=== PATIENT | female | born 1985 | race Caucasian/White ===

== ENCOUNTER 2023-04-25 13:15 | Emergency (ER) | payer BC, MEDICAID, SELFPAY ==
[2023-04-25 13:27] VITALS: BP 107/73; PULSE 63; RESP 16; TEMP 36.3; O2SAT 100; BMI 16.3
[2023-04-25 13:59] LABS: Basophils # 0.1 10^3/uL (0.0-0.1); Basophils % 0.7 %; Eosinophils % 0.2 %; Hematocrit 38.1 % (36-47); Lymphocytes # 1.3 10^3/uL (0.8-4.8); Lymphocytes % 11.7 %; Mean Corpuscular HGB Conc 31.2 g/dL (30-55); Mean Corpuscular Hemoglobin 26.4 pg (27-33); Mean Corpuscular Volume 84.5 fl (85-98); Mean Platelet Volume 9.6 fL (7.4-10.4); Monocytes # 0.2 10^3/uL (0.2-0.9); Nucleated Red Blood Cells % 0 %; Platelet Count 400 10^3/cmm (157-399); Red Blood Count 4.51 10^6/uL (3.85-5.65); Red Cell Distribution Width 13.4 % (12.1-15.1)
[2023-04-25 14:21] LABS: Alanine Aminotransferase 7 U/L (0-33); Albumin Level 4.3 g/dL (3.5-5.2); Alkaline Phosphatase 79 U/L (35-105); Anion Gap 17.3 (5-19); Aspartate Amino Transferase 9 U/L (0-32); Blood Urea Nitrogen 7 mg/dL (6-20); Calcium 9.4 mg/dL (8.5-10.5); Carbon Dioxide 20 mmol/L (22-29); Chloride 104 mmol/L (98-107); Globulin 2.6 g/dL (1.3-4.6); Glomerular Filtration Rate 95.2 mL/min (90-130); Glucose 129 mg/dL (65-115); HCG, Serum Qual Negative (Negative); Lipase 14 U/L (13-60); Osmolality Calculated 284 mOsm/kg (285-295); Potassium 4.3 mmol/L (3.5-5.1); Sodium 137 mmol/L (136-145); Total Bilirubin 0.4 mg/dL (0.15-1.2); Total Protein 6.9 g/dL (6.6-8.7)
[2023-04-25 14:30] VITALS: PULSE 62; O2SAT 99
--- NOTE | 2023-04-25 14:31 | ED_ITS ---
HPI - Headache General: Chief Complaint: Headache Stated Complaint: NV,headache Time Seen by Provider: 04/25/23 14:30 History of Present Illness: 37-year-old female comes in today for complaints of headache starting last night and worsening this morning. Patient reports nausea and vomiting, and increasing headache with movement. Patient reports no light sensitivity. Patient does report dizziness and lightheadedness with headache. Patient appears unwell but not toxic. Patient smokes nicotine. Patient reports [id number] ibuprofen for occasional medications. Patient has been unable to tolerate oral medicines today due to nausea and vomiting with headache. Patient denies fever. Associated symptoms: Reports nausea and vomiting; Deny chest pain or fever(s) Review of Systems General: Reports: 10 or more systems reviewed and unremarkable except in HPI and below Const: Reports: chills; Denies: fever(s) or body aches Eyes: Denies: change in vision ENMT: Denies: throat pain Card: Denies: chest pain Resp: Denies: dyspnea, non-productive cough or chest congestion GI: Reports: nausea and vomiting; Denies: diarrhea or constipation : Denies: difficulty voiding Musc: Denies: neck pain or back pain Neuro: Reports: headache(s) Physical Exam Const: COMMON NORMALS: alert HENMT: COMMON NORMALS: normocephalic HEAD & SCALP: normocephalic MOUTH: Normal oral and palatal mucosa present Neck/C-Spine: COMMON NORMALS: full ROM and no meningeal signs Chest: COMMONS NORMALS: normal inspection of the chest Resp: COMMON NORMALS: normal respiratory effort and clear to auscultation bilaterally AUSCULTATION: clear to auscultation bilaterally Cardio: COMMON NORMALS: regular rate and regular rhythm RATE: regular rate RHYTHM: regular rhythm GI: COMMON NORMALS: Soft to palpation and non-tender PALPATION: Yes Soft to palpation : COMMON NORMALS: Yes no CVA tenderness BLADDER/KIDNEY EXAM: Yes no CVA tenderness Back/Pelvis: COMMON NORMALS: no CVA tenderness Extremity: COMMON NORMALS: normal to inspection and full ROM Neuro: SENSORIUM/ORIENTATION: Yes alert MENINGEAL SIGNS: Yes no meningeal signs Skin: COMMON NORMALS: turgor normal GENERAL SKIN EXAM: turgor normal Course Vital Signs: Vital signs: Vital Signs Temperature 97.4 F L 04/25/23 13:27 Pulse Rate 54 L 04/25/23 15:48 Respiratory Rate 16 04/25/23 13:27 Blood Pressure 107/73 04/25/23 13:27 Pulse Oximetry 100 04/25/23 15:48 Oxygen Delivery Me thod Room Air 04/25/23 15:48 MDM - Headache Medical Decision Making Patient presents today with a headache that started last night worsening this morning. Patient reports nausea and vomiting and some lightheadedness with movement. Patient reports no previous headaches like this. Patient appears unwell but not toxic. No focal neural deficits are noted. Patient moves all extremities well. Pupils are equal and reactive. Vital signs are normal. Differential diagnosis includes but not limited to subarachnoid hemorrhage, cranial mass, viral syndrome, migraine headache. CT of the head was unremarkable. CBC and CMP were normal. Urinalysis was normal. Patient was treated for migraine with headache cocktail of 10 mg of Reglan, 15 mg ketorolac, 25 mg of diphenhydramine, and 10 mg of dexamethasone IV pushed, along with 500 mL of saline for dehydration due to nausea and vomiting. Patient had resolution of headache. Patient will continue with routine care and follow-up with primary care for further evaluation of recurrent headaches. Patient stated understanding of care plan and need for follow-up or return to the ER. Lab Data 04/25/23 13:50 04/25/23 13:[address] 04/25/23 14:38 IMPRESSION: No acute intracranial abnormality. Laboratory Results WBC 10.70 10^3/uL (3.29-11.43) 04/25/23 13:50 RBC 4.51 10^6/uL (3.85-5.65) 04/25/23 13:50 Hgb 11.90 g/dL (11.27-16.99) 04/25/23 13:50 Hct 38.1 % (36-47) 04/25/23 13:50 MCV 84.5 fl (85-98) L 04/25/23 13:50 MCH 26.4 pg (27-33) L 04/25/23 13:50 MCHC 31.2 g/dL (30-55) 04/25/23 13:50 RDW 13.4 % (12.1-15.1) 04/25/23 13:50 Plt Count 400 10^3/cmm (157-399) H 04/25/23 13:50 MPV 9.6 fL (7.4-10.4) 04/25/23 13:50 Neut % (Auto) 85.0 % 04/25/23 13:50 Lymph % (Auto) 11.7 % 04/25/23 13:50 [place] % (Auto) 2.0 % 04/25/23 13:50 Eos % (Auto) 0.2 % 04/25/23 13:50 Baso % (Auto) 0.7 % 04/25/23 13:50 Neut # (Auto) 9.10 10^3/uL (1.8-7.7) H 04/25/23 13:50 Lymph # (Auto) 1.3 10^3/uL (0.8-4.8) 04/25/23 13:50 [place] # (Auto) 0.2 10^3/uL (0.2-0.9) 04/25/23 13:50 Eos # (Auto) 0.0 10^3/uL (0.0-0.8) 04/25/23 13:50 Baso # (Auto) 0.1 10^3/uL (0.0-0.1) 04/25/23 13:50 Nucleated RBC % (auto) 0 % 04/25/23 13:50 Nucleated RBCs # 0.0 /100WBC 04/25/23 13:50 Sodium 137 mmol/L (136-145) 04/25/23 13:50 Potassium 4.3 mmol/L (3.5-5.1) 04/25/23 13:50 Chloride 104 mmol/L (98-107) 04/25/23 13:50 Carbon Dioxide 20 mmol/L (22-29) L 04/25/23 13:50 Anion Gap 17.3 (5-19) 04/25/23 13:50 BUN 7 mg/dL (6-20) 04/25/23 13:50 Creatinine 0.7 mg/dL (0.5-0.9) 04/25/23 13:50 GFR Calculation 95.2 mL/min (90-130) 04/25/23 13:50 Glucose 129 mg/dL (65-115) H 04/25/23 13:50 Calculated Osmolality 284 mOsm/kg (285-295) L 04/25/23 13:50 Calcium 9.4 mg/dL (8.5-10.5) 04/25/23 13:50 Total Bilirubin 0.4 mg/dL (0.15-1.2) 04/25/23 13:50 AST 9 U/L (0-32) 04/25/23 13:50 ALT 7 U/L (0-33) 04/25/23 13:50 Alkaline Phosphatase 79 U/L (35-105) 04/25/23 13:50 Total Protein 6.9 g/dL (6.6-8.7) 04/25/23 13:50 Albumin 4.3 g/dL (3.5-5.2) 04/25/23 13:50 Globulin 2.6 g/dL (1.3-4.6) 04/25/23 13:50 Lipase 14 U/L (13-60) 04/25/23 13:50 HCG, Qual Negative (Negative) 04/25/23 13:50 Urine Color Yellow (Yellow) 04/25/23 15:40 Urine Appearance Hazy (CLEAR) A 04/25/23 15:40 Urine pH 6 (5-7) 04/25/23 15:40 Ur Specific [place] 1.020 (1.005-1.030) 04/25/23 15:40 Urine Protein Neg (Negative) 04/25/23 15:40 Urine Glucose (UA) Norm (Normal) 04/25/23 15:40 Urine Ketones 1+ (Negative) H 04/25/23 15:40 Urine Blood 2+ (Negative) H 04/25/23 15:40 Urine Nitrate Negative (Negative) 04/25/23 15:40 Urine Bilirubin Neg (Negative) 04/25/23 15:40 Urine Urobilinogen Norm mg/dL (Negative) 04/25/23 15:40 Ur Leukocyte Esterase Negative (Negative) 04/25/23 15:40 Urine RBC 0-4 /hpf (0-2) H 04/25/23 15:40 Urine WBC 0-4 /hpf (0-5) H 04/25/23 15:40 Ur Squamous Epith Cells 10-15 /hpf (0-5) H 04/25/23 15:40 Amorphous Sediment Not Reportable 04/25/23 15:40 Urine Bacteria 1+ /hpf (NONE) H 04/25/23 15:40 Urine Mucus 2+ /hpf 04/25/23 15:40 Urine Trichomonas 1+ /hpf H 04/25/23 15:40 Urine Sperm 2+ /hpf 04/25/23 15:40 Ur Oval Fat Bodies None /hpf 04/25/23 15:40 All radiology interpretation(s) finalized by discharge Discharge Plan Discharge Patient Disposition: Home Clinical Impression: Acute dehydration Migraine Qualifiers: Migraine type: unspecified Status migrainosus presence: without status migrainosus Intractability: not intractable Qualified Code(s): G43.909 - Migraine, unspecified, not intractable, without status migrainosus Nausea & vomiting Qualifiers: Vomiting type: unspecified Qualified Code(s): R11.2 - Nausea with vomiting, unspecified Condition: Stable Prescriptions: No Action amoxicillin-pot clavulanate 875-125 mg tablet 1 tab PO BID 7 Days Qty: 14 0RF Discharge Orders: Discharge ED (Routine); Ordered 04/25/23 Ordered By: Ignacio Edmonds Discharge Diet: Usual diet Patient Instructions: General Headache (ED) Activity Restrictions/Additional Instructions: Home and rest. Drink plenty of water and fluids. Follow-up with primary care regarding recurrent headaches. Return to ER for worsening symptoms such as high fever, shortness of breath, or severe chest pain. Coding Level of Care Code ED Crossing Watchman for John Luong
--- NOTE | 2023-04-25 14:38 | CTR_ITS ---
PROCEDURE INFORMATION: Exam: CT Head Without Contrast Exam date and time: 04/25/2023 3:31 PM Age: 37 years old Clinical indication: Pain; Headache; Additional info: Headache, described worst she has ever had TECHNIQUE: Imaging protocol: Computed tomography of the head without contrast. Radiation optimization: All CT scans at this facility use at least one of these dose optimization techniques: automated exposure control; mA and/or kV adjustment per patient size (includes targeted exams where dose is matched to clinical indication); or iterative reconstruction. REPORTING DATA: Count of CT and Cardiac NM exams in prior 12 months: This patient has received 0 known CTs and 0 known cardiac nuclear medicine studies in the 12 months prior to the current study. COMPARISON: No relevant prior studies available. RADIATION DOSE METRICS: Total DLP (mGy-cm): 939 FINDINGS: Brain: Normal. No hemorrhage. Unremarkable white matter. No mass effect. Cerebral ventricles: No ventriculomegaly. Paranasal sinuses: Visualized sinuses are unremarkable. No fluid levels. Mastoid air cells: Visualized mastoid air cells are well aerated. Bones/joints: Unremarkable. No acute fracture. Soft tissues: Unremarkable. CT/CT head wo con* [id number] IMPRESSION: No acute intracranial abnormality.
[2023-04-25] MEDS: diphenhydrAMINE 50 mg/mL SDV 1mL 25 MG IVP (15:01)
[2023-04-25] MEDS: ketorolac 30 mg/mL INJ 15 MG IVP (15:03)
[2023-04-25] MEDS: sodium chloride 0.9% 500 ML 999 ML IV (15:03)
[2023-04-25] MEDS: dexamethasone 10 mg/mL INJ IVP (15:04)
[2023-04-25] MEDS: metoclopramide 5 mg/mL SDV 2 mL 10 MG IVP (15:04)
[2023-04-25 15:48] VITALS: PULSE 54; O2SAT 100
[2023-04-25 15:57] LABS: Add Urine Microscopic? YES; Bilirubin Urine Neg (Negative); Blood Urine 2+ (Negative); Glucose Urine UA Norm (Normal); Ketones Urine 1+ (Negative); Leukocyte Esterase Urine Negative (Negative); Nitrate Urine Negative (Negative); Protein Urine Neg (Negative); Urine Appearance Hazy (CLEAR); Urine Color Yellow (Yellow); Urobilinogen Urine Norm (Negative); pH Urine 6 (5-7)
[2023-04-25 16:08] LABS: RBC Urine 0-4 /hpf (0-2); WBC Urine 0-4 /hpf (0-5)
[2023-04-25 16:09] LABS: Add Urine Culture? No; Bacteria Urine 1+ /hpf; Mucus Urine 2+ /hpf; Sperm Urine 2+ /hpf; Trichomonas Urine 1+ /hpf
[2023-04-25 16:40] VITALS: BP 114/64; PULSE 89; O2SAT 98
== END 2023-04-25 16:42 | disposition home or self-care (01) ==
PROVIDERS: Emergency Provider Nurse Practitioner Family
DX: G43.909 Migraine, unspecified, not intractable, without status migrainosus (principal); E86.0 Dehydration; R11.2 Nausea with vomiting, unspecified
CPT/HCPCS: 36415; 70450; 80053; 81001; 83690; 84703; 85025; 96374; 96375; 99285; J1100; J1200; J1885; J2765; J7040

== ENCOUNTER 2024-06-14 12:20 | Emergency (ER) | payer BC, MEDICAID, SELFPAY ==
[2024-06-14 12:28] VITALS: BP 105/66; PULSE 96; RESP 14; TEMP 36.3; O2SAT 100; BMI 15.9
== END 2024-06-14 12:44 | disposition left against medical advice (07) ==
LOC: ER 12:24
PROVIDERS: Emergency Provider Family Medicine
DX: Z53.21 Procedure and treatment not carried out due to patient leaving prior to being seen by health care provider (principal)
CPT/HCPCS: 87880